=== PATIENT | female | born 1955 | race Hispanic/Latino ===

== ENCOUNTER 2019-03-17 13:57 | Emergency (ER) | payer MEDICARE ==
[~2019-03-17 13:57] MED LIST: AEC81 PO; ENOX40DI8 SQ; LEVO137T2 PO; METO-408 PO; WARF7.5T49 PO
[2019-03-17 14:47] LABS: APPEARANCE,URINE SL CLOUDY (CLEAR); BILIRUBIN,URINE NEGATIVE (NEGATIVE); COLOR,URINE YELLOW (YELLOW); GLUCOSE, URINE (UA) NEGATIVE (NEGATIVE); KETONES,URINE NEGATIVE (NEGATIVE); LEUKOCYTE ESTERASE ,URINE MODERATE (NEGATIVE); NITRATE,URINE POSITIVE (NEGATIVE); OCCULT BLOOD,URINE SMALL (NEGATIVE); PH,URINE 5.5 (5.0-8.0); PROTEIN,URINE NEGATIVE (NEGATIVE); UROBILINOGEN,URINE 0.2 mg/dL (0.2-1.0)
[2019-03-17] MEDS ORDERED: DIAZEPAM 5 MG TABLET ONE (14:58)
[2019-03-17] MEDS ORDERED: LIDOCAINE 5% TOPICAL PATCH TP ONE (14:58)
[2019-03-17] MEDS ORDERED: ACETAMINOPHEN 325 MG TAB ONE (14:58)
[2019-03-17 15:05] LABS: BASOPHILS % (AUTO) 0.6 % (0.0-5.0); EOSINOPHILS % (AUTO) 3.3 % (0.0-8.0); HEMATOCRIT 31.1 % (36-48); LYMPHOCYTES % (AUTO) 30.3 % (21.0-51.0); MEAN CORPUSCULAR HGB CONC 34.5 g/dL (32.0-36.0); NEUTROPHILS % (AUTO) 57.8 % (40.0-77.0); PLATELET COUNT (AUTO) 176 K/uL (130-400); RED BLOOD CELL COUNT(AUTO) 3.58 MIL/uL (4.00-5.50); RED CELL DISTRIBUTION WIDTH 12.9 % (11.0-15.5); WHITE BLOOD COUNT (AUTO) 5.6 K/uL (4.8-10.8)
[2019-03-17 15:13] LABS: BACTERIA,URINE Moderate /HPF (None Seen); MUCUS,URINE Few LPF (None Seen); SQUAMOUS EPITHELIAL CELL,UR Rare /HPF (0-2)
[2019-03-17 15:23] LABS: CREATININE 0.9 mg/dL (0.5-1.5); POTASSIUM 4.1 mmol/L (3.5-5.1)
[2019-03-17 15:27] LABS: ALBUMIN 3.6 g/dL (3.5-5.0); BILIRUBIN,TOTAL 0.7 mg/dL (0.2-1.0); TOTAL PROTEIN, SERUM 6.6 g/dL (6.0-8.3)
[2019-03-17] MEDS ORDERED: CEFTRIAXONE SODIUM 1 GM ONE (16:12)
[2019-03-17] MEDS ORDERED: LIDOCAINE HCL-MPF 1% 2ML VIAL ONE (16:13)
== END 2019-03-17 17:16 | disposition home or self-care (01) ==
LOC: EDH 13:57
DX: N39.0 Urinary tract infection, site not specified (principal); M54.16 Radiculopathy, lumbar region; I10 Essential (primary) hypertension; E03.9 Hypothyroidism, unspecified; Z87.891 Personal history of nicotine dependence; Z98.890 Other specified postprocedural states
CPT/HCPCS: 36415; 80053; 81001; 85025; 87077; 87088; 87186; 96372; 99284; J0696; J3490

== ENCOUNTER 2024-11-13 06:01 | Day surgery (SDC) | payer OTHER, MEDICARE ==
[~2024-11-13] VITALS: Ht 154.9 cm; Wt 65.8 kg
[2024-11-13] VITALS (10 sets, daily range): BP systolic 103–154; BP diastolic 53–70; PULSE 70–79; RESP 15–17; TEMP 97–97.6
[2024-11-13] MEDS ORDERED: HYDR-4419 PO (06:33)
[2024-11-13] MEDS ORDERED: APIX5TAB PO (06:33)
[2024-11-13] MEDS ORDERED: CARV3.12 PO (06:33)
[2024-11-13] MEDS ORDERED: HYDR5TAB14 PO (06:33)
[2024-11-13] MEDS ORDERED: LEVO100C5 PO (06:33)
[2024-11-13] MEDS ORDERED: AMIO200T68 PO (06:33)
[2024-11-13] MEDS: 0.9%NACL 1000ML 1,000 ML IV ONE (06:35)
[2024-11-13] MEDS ORDERED: proPOFol 10 MG/ML 20ML VIAL IV ONE (08:23)
[2024-11-13] MEDS ORDERED: LIDOCAINE HCL 1% 20 ML VIAL ONE (08:23)
--- NOTE | 2024-11-13 09:44 | NUR ---
Full and complete discharge instructions given to Patient and Family both v.erbally and in writing. Explained GI procedure precautions and follow up. All questions answered. PIV removed with catheter tip intact. Home with Family W/C to POV.
== END 2024-11-13 09:45 | disposition home or self-care (01) ==
LOC: DAH 06:01 → ENDO 06:01
PROVIDERS: ATTEND Internal Medicine
DX: R19.5 Other fecal abnormalities (principal); K63.5 Polyp of colon; K29.50 Unspecified chronic gastritis without bleeding; K44.9 Diaphragmatic hernia without obstruction or gangrene; K62.89 Other specified diseases of anus and rectum; R10.13 Epigastric pain; E03.9 Hypothyroidism, unspecified; Z95.0 Presence of cardiac pacemaker; Z86.718 Personal history of other venous thrombosis and embolism; Z79.899 Other long term (current) drug therapy
CPT/HCPCS: 45380; 45385; 43239; J7030; J2704; A4620; A4215; J3490